=== PATIENT | male | born 1970 | race Caucasian/White ===

== ENCOUNTER 2017-10-29 20:11 | Emergency (ER) | payer SELFPAY ==
[2017-10-29 20:18] VITALS: BP 128/95
[2017-10-29] MEDS ORDERED: CLINDAMYCIN HCL 150 MG CAPSULE PO ONE (20:26)
[2017-10-29] MEDS ORDERED: LIDOCAINE 2% JELLY 30 ML TUBE TOP ONE (20:26)
--- NOTE | 2017-10-29 20:28 | ER Document Report ---
ED Oral Problem - General Chief Complaint: Abdominal Pain Stated Complaint: TOOTHACHE Time Seen by Provider: 10/29/17 20:25 Notes: The patient is a 46-year-old male, past medical history polysubstance abuse, presents with 6 days of dental pain. Said he has had poor dentition for multiple years of his life and does not have a dentist. In addition, he is complaining of chronic abdominal pain for weeks and weeks. Denies difficulty swallowing, fevers, neck stiffness, tongue elevation, nausea, vomiting, diarrhea , constipation or urinary symptoms. TRAVEL OUTSIDE OF THE [place] IN LAST 30 DAYS: No - Related Data Allergies/Adverse Reactions: penicillin V [Penicillin V] Allergy (Verified 05/14/16 12:35) Past Medical History - General Information source: Patient - Social History Smoking Status: Current Every Day Smoker Drug Abuse: Cocaine - Hx of cocaine abuse, Marijuana, Prescription drugs - Hx of oxycodone abuse Family History: CAD, Hyperlipidemia, Hypertension, Malignancy - Past Medical History Cardiac Medical History: Denies: Hx Coronary Artery Disease, Hx Heart Attack, Hx Hypertension Pulmonary Medical History: Denies: Hx Asthma, Hx Bronchitis, Hx COPD, Hx Pneumonia Neurological Medical History: Reports: Hx Migraine. Denies: Hx Cerebrovascular Accident, Hx Seizures Musculoskeltal Medical History: Reports Hx Arthritis - to hips, Reports Hx Musculoskeletal Deformity, Reports Hx Musculoskeletal Trauma Psychiatric Medical History: Reports: Hx Bipolar Disorder, Hx Depression Traumatic Medical History: Reports: Hx Fractures - Left ankle right wrist, Hx Spine Fracture Past Surgical History: Reports: Hx Orthopedic Surgery - back surgery x3 - Immunizations Immunizations up to date: Yes Hx Diphtheria, Pertussis, Tetanus Vaccination: Yes Review of Systems - Review of Systems Notes: REVIEW OF SYSTEMS: CONSTITUTIONAL: -fevers, -chills EENT: -eye pain, -difficulty swallowing, -nasal congestion, +dental pain CARDIOVASCULAR:-chest pain, -syncope. RESPIRATORY: -cough, -SOB GASTROINTESTINAL: +abdominal pain, - nausea, -vomiting, -diarrhea GENITOURINARY: -dysuria, -hematuria MUSCULOSKELETAL: -back pain, -neck pain SKIN: -rash or skin lesions. HEMATOLOGIC: -easy bruising or bleeding. LYMPHATIC: -swollen, enlarged glands. NEUROLOGICAL: -altered mental status or loss of consciousness, -headache, - neurologic symptoms PSYCHIATRIC: -anxiety, -depression. ALL OTHER SYSTEMS REVIEWED AND NEGATIVE. Physical Exam - Vital signs Vitals: Temp Pulse Resp BP Pulse Ox 98.1 F 76 16 128/95 H 98 10/29/17 20:17 10/29/17 20:17 10/29/17 20:17 10/29/17 20:17 10/29/17 20:17 - Notes Notes: PHYSICAL EXAMINATION: GENERAL: Well-appearing, well-nourished and in no acute distress. HEAD: Atraumatic, normocephalic. EYES: Pupils equal round and reactive to light, extraocular movements intact, sclera anicteric, conjunctiva are normal. ENT: poor upper mouth dentition, mild gingival swelling, nares patent, oropharynx clear without exudates. Moist mucous membranes. NECK: Normal range of motion, supple without lymphadenopathy LUNGS: Breath sounds clear to auscultation bilaterally and equal. No wheezes rales or rhonchi. HEART: Regular rate and rhythm without murmurs ABDOMEN: Soft, nontender, normoactive bowel sounds. No guarding, no rebound. No masses appreciated. EXTREMITIES: Normal range of motion, no pitting or edema. No cyanosis. NEUROLOGICAL: Cranial nerves grossly intact. Normal speech, normal gait. Normal sensory and motor exams. PSYCH: Normal mood, normal affect. SKIN: Warm, Dry, normal turgor, no rashes or lesions noted. Course - Re-evaluation Re-evalutation: Patient with poor dentition and worsening tooth pain for the past 6 days. Instructed him that the ER does not treat dental pain and gave him a list of dental clinics in [facility]. With patient's history of oxycodone abuse, will treat patient with lidocaine jelly, anti-inflammatories and clindamycin for any early abscess formation. His abdominal pain has been going on for months and he is nontender. Do not suspect a life-threatening etiology for the abdominal pain and instructed to follow-up his primary care physician for further evaluation and treatment. - Vital Signs Vital signs: Temp Pulse Resp BP Pulse Ox 98.1 F 76 16 128/95 H 98 10/29/17 20:17 10/29/17 20:17 10/29/17 20:17 10/29/17 20:17 10/29/17 20:17 Discharge - Discharge Clinical Impression: Dentalgia, Chronic abdominal pain Condition: Stable Disposition: HOME, SELF-CARE Additional Instructions: TOOTHACHE: Your pain is due to dental decay. The tooth must be repaired in order for you to feel better. You will, therefore, be referred to a dentist. We do not have dentists on the staff at [facility]. Severe swelling or drainage around a tooth usually means a dental abscess. This also requires evaluation and treatment by the dentist, but antibiotics may be prescribed while awaiting dental treatment. You should be rechecked immediately if you develop major swelling of the face, increasing pain, a lump in the jaw or gums, headache, difficulty swallowing, or fever. CLINDAMYCIN: You have been given a prescription for the antibiotic clindamycin. It is often prescribed for infections in the mouth, such as dental infections or abscesses, and for skin infections due to MRSA. It's important that you take all the medication, unless instructed otherwise by your physician. Failure to complete the entire course can result in relapse of your condition. Common side effects of antibiotics include nausea, intestinal cramping, or diarrhea. Women may develop vaginal yeast infections, and babies can get yeast (thrush) in the mouth following the use of antibiotics. Contact your physician if you develop significant side effects from this medication. Allergy to this antibiotic can result in hives, wheezing, faintness, or itching. If symptoms of allergy occur, stop the medication and call the doctor. FOLLOW-UP CARE: You have been referred for follow-up care to the dentists listed below. Call the dentists office for an appointment as you were instructed or within the next two days. If you experience worsening or a significant change in your symptoms, notify the physician immediately or return to the Emergency Department at any time for re-evaluation. [facility] [address] [place], [place] Thursday mornings, by appointment [facility] [address] [place] [address] [facility] [address] [facility] [address] [facility] [address] [facility]. [facility] [address] [email or web address] [address] [place] [address] Thursday- 8:00am to 5:00 pm Will see patients from other [facility]. Charges based on income and family size and accepts Medicare, Medicaid, and Insurances Will pull molars [facility], [facility] [address] Hours of Operation 8:00 am - 4:30 pm weekdays The following dental offices accept Medicaid: [facility] Dr. Lucas Dr. Moss Dr. Fernandez Dr. Cochran Jitendra Fair, [place], and Jessi oral surgery Dr. Martins ([place]) Dr. Platt ([place]) [facility] Drs. Verdugo ([place]) Dr. Lopez ([place]) [facility] Dr. Ness ([place]) Drs. Rushing and ([place]) Medicaid Care Line Prescriptions: Clindamycin HCl 300 mg PO Q8H #20 capsule Referrals: [facility] [Provider Group] - Follow up as needed
[2017-10-29] MEDS ORDERED: LIDOCAINE 2% VISCOUS SOLN 20 ML UDCUP PO ONE (20:44)
== END 2017-10-29 21:05 | disposition home or self-care (01) ==
LOC: ER 20:11
DX: K08.89 Other specified disorders of teeth and supporting structures (principal); G89.29 Other chronic pain; R10.9 Unspecified abdominal pain; F17.200 Nicotine dependence, unspecified, uncomplicated; Z88.0 Allergy status to penicillin
CPT/HCPCS: 99282; J3490

== ENCOUNTER 2017-12-08 08:00 | Day surgery (SDC) | payer OTHER ==
[2017-12-08 09:44] LABS: INTERNATIONAL RATION (INR) 0.93; PROTHROMBIN TIME 13.1 SEC (11.4-15.4)
[2017-12-08 09:47] LABS: PARTIAL THROMBOPLASTIN TIME 26.2 SEC (23.5-35.8)
[2017-12-08 13:49] VITALS: BP 112/64
--- NOTE | 2017-12-08 17:04 | RADIOLOGY REPORT (SQ) ---
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 FLUOROSCOPY TIME: 2 minutes 28 seconds 30 digital radiographic images saved to PACS. Postmyelogram CT was also obtained. CT dose report 4.7 mGy TECHNIQUE: Fluoroscopic guided lumbar myelogram. Postmyelogram CT scan, with multiplanar reconstructions LIMITATIONS: Limited access to the lumbar canal due to bony fusion from L2 through S1. Artifact fro m lumbar hardware from L2 through S1. PROCEDURE: After written consent and assessment were obtained, the patient was brought into the fluo roscopy room and placed prone on the table. The patient's lower back was prepped in a sterile fashio n and an entry site was selected under live fluoroscopic guidance. The entry site was anesthetized wi th 1% lidocaine. 22 gauge spinal needle was advanced through the skin and into the thecal sac at the right paracentral L1-2 level. Contrast was injected into the thecal sac. Following the procedure t he needle was removed and a sterile bandage was placed of the site. CONTRAST: 8 mL Isovue-300. IMAGES ACQUIRED: Prone oblique, semi-erect and upright oblique imaging, AP and lateral imaging of the lumbar spine with upright flexion and extension fluoroscopic images. Postmyelogram CT scan was performed, reviewed at bone and soft tissue windows with sagittal and coron al reconstructions. FINDINGS: During fluoroscopy, there was pooling of contrast in in an ectatic thecal sac at the L4 le alva. Individual lumbar nerve roots were difficult to visualize due to bilateral transpedicular screw s from L2 through S1 as well as dilution and pooling of contrast within the distended lumbar thecal s ac at the L4 level. The fluoroscopic prone cross-table images demonstrate pooling of contrast in the thecal sac at about the L4 level. Postmyelogram CT: Conus is at the L1-2 level. T11-12, T12-L1, and L1-2 are unremarkable. Nerve roots are interspace throughout the thecal sac with out evidence of adhesions at these levels. There is streak artifact from transpedicular screws and dorsal fixation plates from L2 through S1. P lease note that the L4 transpedicular screws are not attached to the dorsal fixation plate. There ar e multiple retroperitoneal surgical clips present. At L2-3, there is no bony central or foraminal encroachment. Bone graft material is seen throughout the posterior elements. No clumping of lumbar nerve roots at this level. At L3-4, the central stenosis is present. No significant left foraminal narrowing. There is bony ri ght foraminal narrowing along the proximal neural foramen best shown on sagittal reconstruction image 19 and axial images 49 through 52. This extensive bone graft material along the dorsal aspect of th e spine as well as the transverse processes. It is difficult to discern whether there is clumping of nerve roots in the thecal sac at this level due to streak artifact from hardware At the L4-5 level, the central spinal canal is ectatic, measuring about 4 cm transverse by 3 cm AP. There is a layer of dependently layering contrast within the central canal. It is unclear whether th is is a large diverticulum or sacculation off the main thecal sac, or whether this represents ectasia of the sac itself. There is puddling of contrast in multiple fluid fluid levels indicating probable arachnoid adhesions at the L4-5 level. No bony central canal stenosis is present. No significant l eft or right bony foraminal narrowing. At the L5-S1 level, minimal contrast fills the thecal sac. There are fluid-fluid layers within the t hecal sac indicating arachnoid adhesions. No bony central stenosis or significant bony foraminal [employer]. IMPRESSION: Abnormal thecal sac at the L4 and L5 levels. At L4 and L4-5, there is dilatation of the thecal sac or a large dural CSF filled diverticulum. This could have mass-effect on [place] nerve ro ots. Fine detail is difficult to discern from streak artifact from hardware. COMMENT: Patient medication list reviewed: Yes- Quality ID# [id number]:Eligible professional attests to doc umenting in the medical record they obtained, updated, or reviewed the patient's current medications. . Quality ID 145: Final reports for procedures using fluoroscopy that document radiation exposure yina oseas, or exposure time and number of fluorographic images (if radiation exposure indices are not avail able) TECHNICAL DOCUMENTATION: JOB ID: [id number] [employer] ([employer])- All Rights Reserved
== END 2017-12-08 13:20 | disposition home or self-care (01) ==
LOC: RAD 08:00
PROVIDERS: ATTEND General Practice
PROC: B01BYZZ Fluoroscopy of Spinal Cord using Other Contrast (ICD-10-PCS; principal; 2017-12-08)
DX: M51.16 Intervertebral disc disorders with radiculopathy, lumbar region (principal)
CPT/HCPCS: 36415; 72132; 72265; 85610; 85730